=== PATIENT | male | born 1940 | race Caucasian/White ===

== ENCOUNTER → 2020-02-14 | Outpatient (CLI) | payer MEDICARE, BC ==
[~2020-02-14] MED LIST: ALBUTEROL SULFATE 0.083% NEB 2.5 MG/3 ML AMPUL NEB ONE
== END ==
LOC: RT 13:30
PROVIDERS: ATTEND Internal Medicine
DX: R06.02 Shortness of breath (principal)
CPT/HCPCS: 94060; A9270

== ENCOUNTER → 2020-03-16 | Outpatient (CLI) | payer MEDICARE ==
[~2020-03-16] MED LIST changes: -ALBUTEROL SULFATE 0.083% NEB 2.5 MG/3 ML AMPUL NEB ONE; +REGADENOSON INJ 0.4 MG/5 ML DISP.SYRIN IV ONE
--- NOTE | 2020-03-16 13:03 | DRAGON STRESS TEST REPORT ---
Pharmacological nuclear stress test Date: March 16, 2020 Referring physician: Kilo Griffiths MD Performing physician: John Encarnacion MD Indication: Chest pain Clinical history 79-year-old male with systemic hypertension and dyslipidemia with moderate degree of dyspnea. Coronary artery disease is suspected and re-stratification has been requested by the primary care physician. Procedure The patient presented to the stress lab. Initially rest images were obtained according to standard protocol after the injection of 14.91 millicurie technetium 99m sestamibi. Subsequently the patient underwent pharmacological stress utilizing 0.4 mg of regadenoson intravenously. The patient's EKG and vital signs were monitored throughout the procedure. Subsequently patient was injected with 43.1 millicuries of technetium 99m sestamibi. After a period of rest, stress images were obtained according to standard protocol. EKG showed sinus rhythm with right bundle branch block at 80 beats per minute. The patient's stress EKG did not show any evidence for myocardial ischemia. There were no arrhythmias observed. Raw as well as processed rest and stress images were reviewed. There was moderate gut uptake which did interfere with the study. The rest and stress images show uniform uptake of radioactive isotope without any reversible defects to suggest myocardial ischemia. There is a predominantly fixed defect in the inferior wall. There is normal contractility post-rest. The calculated ejection fraction is 68%. The TID ratio is 1.21. Conclusion Nuclear perfusion images are limited by moderate gut intake. The stress EKG is negative for myocardial ischemia There is no scintigraphic evidence of myocardial ischemia provoked by pharmacological stress. Predominantly fixed defect in the inferior wall which could pertain to study quality issues. There is normal contractility post-stress. The gated left ventricular ejection fraction is 68 %. MTDD
== END ==
LOC: RAD 06:45
PROVIDERS: ATTEND Internal Medicine
DX: R94.31 Abnormal electrocardiogram [ECG] [EKG] (principal); I10 Essential (primary) hypertension; E78.5 Hyperlipidemia, unspecified; I25.10 Atherosclerotic heart disease of native coronary artery without angina pectoris
CPT/HCPCS: 93017; 78452; A9500; J2785; Q9969

== ENCOUNTER 2020-06-27 23:47 | Emergency (ER) | payer MEDICARE ==
--- NOTE | 2020-06-28 00:12 | ER Document Report ---
HPI - HPI Patient complains to provider of: Foreign body in the ear Time Seen by Provider: 06/28/20 00:02 Onset: This evening Onset/Duration: Sudden Context: Patient reports having his hearing aid get stuck in his right ear this evening. Associated Symptoms: None Exacerbated by: Denies Relieved by: Denies Similar symptoms previously: No Recently seen / treated by doctor: No - ROS ROS below otherwise negative: Yes Systems Reviewed and Negative: Yes All other systems reviewed and negative Past Medical History - General Information source: Patient - Social History Smoking Status: Never Smoker Lives with: Family Family History: Reviewed & Not Pertinent Pulmonary Medical History: Reports: Hx COPD Past Surgical History: Reports: Hx Orthopedic Surgery - Immunizations Hx Diphtheria, Pertussis, Tetanus Vaccination: Yes Vertical Provider Document - CONSTITUTIONAL Agree With Documented VS: Yes Exam Limitations: No Limitations General Appearance: WD/WN, No Apparent Distress - INFECTION CONTROL TRAVEL OUTSIDE OF THE [place] IN LAST 30 DAYS: No - HEENT HEENT: Atraumatic, Normocephalic Notes: Foreign body to the right external auditory canal - NECK Neck: Normal Inspection - RESPIRATORY Respiratory: No Respiratory Distress - MUSCULOSKELETAL/EXTREMETIES Musculoskeletal/Extremeties: MAEW - NEURO Level of Consciousness: Awake, Alert, Appropriate Motor/Sensory: No Motor Deficit - DERM Integumentary: Warm, Dry, No Rash Course - Re-evaluation Re-evalutation: 06/28/20 00:16 Portion of patient's hearing aid removed from right external auditory canal with use of alligator forceps. Patient tolerated procedure well. Patient denies any complaints - Laboratory Results Critical Laboratory Results Reviewed: No Critical Results - Radiology Results Critical Radiology Results Reviewed: No Critical Results Discharge - Discharge Clinical Impression: Foreign body of ear, right Qualifiers: Encounter type: initial encounter Qualified Code(s): T16.1XXA - Foreign body in right ear, initial encounter Condition: Stable Disposition: HOME, SELF-CARE Instructions: Foreign Object in the Ear ([facility]) Additional Instructions: Return immediately for any new or worsening symptoms Followup with your primary care provider as needed for recheck Referrals: PRISCILA AGUILAR MD [Primary Care Provider] - Follow up as needed
[2020-06-28 00:17] VITALS: BP 178/78
== END 2020-06-28 00:30 | disposition home or self-care (01) ==
LOC: ER 23:47
DX: T16.1XXA Foreign body in right ear, initial encounter (principal); X58.XXXA Exposure to other specified factors, initial encounter; J44.9 Chronic obstructive pulmonary disease, unspecified
CPT/HCPCS: 99282